=== PATIENT | female | born 1950 | race African-American/Black ===

== ENCOUNTER 2021-08-31 13:57 | Emergency (ER) | payer MEDICARE, MEDICAID ==
[~2021-08-31] VITALS: Ht 152.4 cm; Wt 41.0 kg
[2021-08-31] MEDS ORDERED: MORPHINE SULFATE 4 MG/ML CPJ (NOT FOR IM USE) IV STA (15:35)
[2021-08-31] MEDS ORDERED: ONDANSETRON HCL 4MG/2ML INJ IV STA (15:35)
[2021-08-31] MEDS ORDERED: ASPIRIN 81MG TABLET PO ONE (16:00)
[2021-08-31 16:39] LABS: CHLORIDE 99 mEq/L (98-107)
[2021-08-31 16:42] LABS: BASOPHILS % 0.4 % (0.0-2.0); EOSINOPHILS % 1.6 % (0.0-5.0); HEMATOCRIT. 32.9 % (36.0-48.0); LYMPHOCYTES % 18.1 % (20.0-50.0); MEAN CORPUSCULAR VOLUME 105.1 fL (81.0-99.0); MEAN PLATELET VOLUME 7.4 fl (7.4-10.4); MONOCYTES % 9.9 % (2.0-8.0); PLATELET 246 x1000/uL (130-400); RED BLOOD CELL COUNT 3.14 mill/uL (4.2-5.4); RED CELL DISTRIBUTION WIDTH 15.7 % (11.6-14.6)
[2021-08-31] MEDS ORDERED: DIPHENHYDRAMINE 12.5MG/5ML UDC PO ONE (17:00)
[2021-08-31 19:00] VITALS: BP 109/66
[2021-09-05] MEDS ORDERED: T4 PO (10:13)
[2021-09-05] MEDS ORDERED: ALBU6.7H9 INH (10:13)
== END 2021-08-31 18:05 | disposition home or self-care (01) ==
LOC: ER 13:57
DX: R07.89 Other chest pain (principal); I10 Essential (primary) hypertension; Z85.41 Personal history of malignant neoplasm of cervix uteri; Z90.710 Acquired absence of both cervix and uterus; Z88.6 Allergy status to analgesic agent
CPT/HCPCS: 36415; 71045; 80053; 83880; 84484; 85025; 96374; 96375; 99285; J2270; J2405; Q0163

== ENCOUNTER 2021-10-29 18:46 | Inpatient (IN) | payer MEDICARE, MEDICAID ==
[~2021-10-29] VITALS: Ht 152.4 cm; Wt 44.9 kg
[~2021-10-29 18:46] MED LIST: ALBU6.7H9 INH; T4 PO
[2021-10-29] MEDS ORDERED: SODIUM CHLORIDE 0.9% 1,000 ML IV ONE (20:00)
[2021-10-29] MEDS ORDERED: HYDROMORPHONE HCL 2MG TABLET PO NR (20:00)
[2021-10-29] MEDS ORDERED: HYDROMORPHONE HCL/PF 2MG/ML CPJ IV ONE (21:15)
[2021-10-29] MEDS ORDERED: DIPHENHYDRAMINE 25MG CAPSULE PO ONE (21:15)
[2021-10-29 21:38] LABS: CHLORIDE 110 mEq/L (98-107)
[2021-10-29 21:42] LABS: HEMATOCRIT. 31.8 % (36.0-48.0); HEMOGLOBIN. 10.9 g/dL (12.0-16.0); MEAN CORPUSCULAR HEMOGLOBIN 35.7 pg (28.0-32.0); MEAN CORPUSCULAR VOLUME 104.3 fL (81.0-99.0); MEAN PLATELET VOLUME 7.4 fl (7.4-10.4); PLATELET 189 x1000/uL (130-400); RED BLOOD CELL COUNT 3.05 mill/uL (4.2-5.4)
[2021-10-29 21:44] LABS: CLARITY URINE CLEAR (CLEAR); COLOR URINE YELLOW (YELLOW); KETONES URINE NEGATIVE (NEGATIVE); LEUKOCYTE ESTERASE URINE NEGATIVE (NEGATIVE); NITRITE URINE NEGATIVE (NEGATIVE); OCCULT BLOOD URINE NEGATIVE (NEGATIVE); PH URINE 5.5 (4.5-8.0); PROTEIN URINE NEGATIVE (NEGATIVE); SPECIFIC GRAVITY URINE 1.012 (1.005-1.030); UROBILINOGEN URINE 0.2 E.U./dL (0.2-1.0)
[2021-10-29] MEDS ORDERED: ONDANSETRON HCL 4MG/2ML INJ IV ONE (21:45)
[2021-10-29 22:53] LABS: PLATELET ESTIMATE NORMAL
[2021-10-30] MEDS ORDERED: VANCOMYCIN HCL 1 GM/VIAL PO SCH ×2 (00:30→06:00)
[2021-10-30] MEDS ORDERED: ASPIRIN 325MG EC TABLET PO ONE (00:30)
[2021-10-30] MEDS ORDERED: DOCUSATE SODIUM 100MG CAPSULE PO PRN (00:45)
[2021-10-30] MEDS ORDERED: HYDROCODONE/ACETAMINOPHEN 5/325MG TABLET PO PRN (00:45)
[2021-10-30] MEDS ORDERED: GUAIFENESIN 200MG/10ML SUGAR FREE UDC PO PRN (00:45)
[2021-10-30] MEDS ORDERED: IPRATROPIUM/ALBUTEROL 0.5-3(2.5)MG/3ML NEB HHN PRN (00:45)
[2021-10-30] MEDS ORDERED: NALOXONE HCL 0.4 MG/ML 1ML VIAL IV PRN (01:15)
[2021-10-30] MEDS ORDERED: DIPHENHYDRAMINE 50MG/ML VIAL IV ONE (01:15)
[2021-10-30] MEDS ORDERED: MORPHINE SULFATE 4 MG/ML CPJ (NOT FOR IM USE) IV SCH (01:15)
[2021-10-30] MEDS: ONDANSETRON HCL 4MG/2ML INJ IV PRN ×4 (02:28→21:17)
[2021-10-30] MEDS ORDERED: ASPIRIN 325MG EC TABLET PO SCH (02:30)
[2021-10-30] MEDS ORDERED: DIPHENHYDRAMINE 50MG/ML VIAL IV SCH (02:30)
[2021-10-30 02:50] VITALS: BP 132/70
[2021-10-30] MEDS ORDERED: HYDROMORPHONE HCL/PF 2MG/ML CPJ IV NR (07:45)
[2021-10-30 08:00] VITALS: BP 142/64
[2021-10-30] MEDS: DIPHENHYDRAMINE 50MG/ML VIAL IV PRN ×3 (08:38→21:17)
[2021-10-30] MEDS: ASPIRIN 81MG EC TABLET PO SCH (08:40)
[2021-10-30] MEDS: METOPROLOL TARTRATE 25MG TABLET PO SCH ×2 (08:40→21:16)
[2021-10-30] MEDS ORDERED: ENOXAPARIN 40MG/0.4ML SYR SUBCUT SCH (09:00)
[2021-10-30 12:00] VITALS: BP 125/80
[2021-10-30] MEDS: HYDROMORPHONE HCL/PF 2MG/ML CPJ IV PRN ×2 (15:14→21:17)
[2021-10-30 16:00] VITALS: BP 129/77
[2021-10-30] MEDS: METRONIDAZOLE 500 MG PREMIX 100 ML IV SCH (17:42)
[2021-10-30 18:03] LABS: BASOPHILS % 0.5 % (0.0-2.0); EOSINOPHILS % 0.8 % (0.0-5.0); HEMATOCRIT. 30.6 % (36.0-48.0); HEMOGLOBIN. 10.4 g/dL (12.0-16.0); LYMPHOCYTES % 28.2 % (20.0-50.0); MEAN CORPUSCULAR HEMOGLOBIN 36.1 pg (28.0-32.0); MEAN CORPUSCULAR VOLUME 106.1 fL (81.0-99.0); MEAN PLATELET VOLUME 7.3 fl (7.4-10.4); MONOCYTES % 12.5 % (2.0-8.0); PLATELET 181 x1000/uL (130-400); RED BLOOD CELL COUNT 2.88 mill/uL (4.2-5.4); RED CELL DISTRIBUTION WIDTH 14.9 % (11.6-14.6)
[2021-10-30 18:23] LABS: CHLORIDE 110 mEq/L (98-107)
[2021-10-30 18:38] LABS: HDL CHOLESTEROL 112 mg/dL (40-59); LDL CHOLESTEROL 58 mg/dL (5-100)
[2021-10-30 20:00] VITALS: BP 128/86
[2021-10-30] MEDS: ATORVASTATIN CALCIUM 40MG TABLET PO SCH (21:15)
[2021-10-31] VITALS: BP 135/67
[2021-10-31] MEDS: METRONIDAZOLE 500 MG PREMIX 100 ML IV SCH ×3 (03:01→17:09)
[2021-10-31] MEDS: ONDANSETRON HCL 4MG/2ML INJ IV PRN ×4 (03:16→21:29)
[2021-10-31] MEDS: DIPHENHYDRAMINE 50MG/ML VIAL IV PRN ×4 (03:17→21:31)
[2021-10-31] MEDS: HYDROMORPHONE HCL/PF 2MG/ML CPJ IV PRN ×4 (03:19→21:35)
[2021-10-31 04:00] VITALS: BP 109/56
[2021-10-31 08:00] VITALS: BP 141/50
[2021-10-31] MEDS: ASPIRIN 81MG EC TABLET PO SCH (09:00)
[2021-10-31] MEDS: METOPROLOL TARTRATE 25MG TABLET PO SCH ×2 (09:00→21:00)
[2021-10-31] MEDS: PANTOPRAZOLE SODIUM 40 MG/VIAL IV SCH (09:15)
[2021-10-31] MEDS: ENOXAPARIN 30MG/0.3ML SYR SUBCUT SCH (09:16)
[2021-10-31 09:27] LABS: BASOPHILS % 1.1 % (0.0-2.0); EOSINOPHILS % 1.3 % (0.0-5.0); HEMATOCRIT. 31.9 % (36.0-48.0); HEMOGLOBIN. 10.7 g/dL (12.0-16.0); LYMPHOCYTES % 21.9 % (20.0-50.0); MEAN CORPUSCULAR HEMOGLOBIN 36.4 pg (28.0-32.0); MEAN CORPUSCULAR VOLUME 108.4 fL (81.0-99.0); MEAN PLATELET VOLUME 7.5 fl (7.4-10.4); MONOCYTES % 11.8 % (2.0-8.0); NEUTROPHILS % 63.9 % (40.0-76.0); PLATELET 181 x1000/uL (130-400); RED BLOOD CELL COUNT 2.94 mill/uL (4.2-5.4); RED CELL DISTRIBUTION WIDTH 15.2 % (11.6-14.6)
[2021-10-31 10:37] LABS: CHLORIDE 109 mEq/L (98-107)
[2021-10-31 10:44] LABS: TOTAL IRON BINDING CAPACITY 347 ug/dL (250-450)
[2021-10-31 11:09] LABS: FOLIC ACID (FOLATE) SERUM 9.9 ng/mL (>5.38)
[2021-10-31 15:37] VITALS: BP 152/90
[2021-10-31 16:15] LABS: *AMPHETAMINES SCREEN URINE NEGATIVE (NEGATIVE); *BARBITURATES SCREEN URINE NEGATIVE (NEGATIVE); *BENZODIAZEPINES SCREEN URINE NEGATIVE (NEGATIVE); *COCAINE SCREEN URINE NEGATIVE (NEGATIVE); CANNABINOID URINE SCREEN NEGATIVE (NEGATIVE); METHADONE URINE SCREEN NEGATIVE (NEGATIVE); OPIATES URINE SCREEN PRESUMTIVE POSITIVE (NEGATIVE); PHENCYCLIDINE URINE SCREEN NEGATIVE (NEGATIVE)
[2021-10-31 20:00] VITALS: BP 106/67
[2021-10-31] MEDS: IPRATROPIUM/ALBUTEROL 0.5-3(2.5)MG/3ML NEB HHN SCH (21:12)
[2021-10-31] MEDS: ATORVASTATIN CALCIUM 40MG TABLET PO SCH (21:28)
[2021-11-01] VITALS (7 sets, daily range): BP systolic 97–120; BP diastolic 65–90
[2021-11-01] MEDS: METRONIDAZOLE 500 MG PREMIX 100 ML IV SCH ×3 (01:54→17:44)
[2021-11-01] MEDS: IPRATROPIUM/ALBUTEROL 0.5-3(2.5)MG/3ML NEB HHN SCH ×3 (01:59→20:29)
[2021-11-01] MEDS: ONDANSETRON HCL 4MG/2ML INJ IV PRN ×4 (04:18→22:31)
[2021-11-01] MEDS: DIPHENHYDRAMINE 50MG/ML VIAL IV PRN ×4 (04:18→22:31)
[2021-11-01] MEDS: HYDROMORPHONE HCL/PF 2MG/ML CPJ IV PRN ×4 (04:25→22:31)
[2021-11-01 05:10] LABS: HIV SCREEN 4G Non Reactive (Non Reactive)
[2021-11-01] MEDS: PANTOPRAZOLE SODIUM 40 MG/VIAL IV SCH (10:30)
[2021-11-01] MEDS: ASPIRIN 81MG EC TABLET PO SCH (10:31)
[2021-11-01] MEDS: METOPROLOL TARTRATE 25MG TABLET PO SCH ×2 (10:31→20:43)
[2021-11-01] MEDS: ENOXAPARIN 30MG/0.3ML SYR SUBCUT SCH (10:32)
[2021-11-01 11:09] LABS: BASOPHILS % 0.3 % (0.0-2.0); EOSINOPHILS % 1.1 % (0.0-5.0); LYMPHOCYTES % 23.4 % (20.0-50.0); MEAN CORPUSCULAR HEMOGLOBIN 35.6 pg (28.0-32.0); MEAN CORPUSCULAR VOLUME 106.4 fL (81.0-99.0); MEAN PLATELET VOLUME 7.9 fl (7.4-10.4); MONOCYTES % 10.9 % (2.0-8.0); NEUTROPHILS % 64.3 % (40.0-76.0); PLATELET 205 x1000/uL (130-400); RED BLOOD CELL COUNT 3.53 mill/uL (4.2-5.4); RED CELL DISTRIBUTION WIDTH 15.2 % (11.6-14.6)
[2021-11-01 11:15] LABS: HEMATOCRIT. 37.5 % (36.0-48.0); HEMOGLOBIN. 12.6 g/dL (12.0-16.0)
[2021-11-01 11:36] LABS: CHLORIDE 102 mEq/L (98-107)
[2021-11-01] MEDS: ATORVASTATIN CALCIUM 40MG TABLET PO SCH (20:43)
[2021-11-02] VITALS: BP 93/62
[2021-11-02] MEDS: IPRATROPIUM/ALBUTEROL 0.5-3(2.5)MG/3ML NEB HHN SCH ×2 (01:27→08:14)
[2021-11-02] MEDS: METRONIDAZOLE 500 MG PREMIX 100 ML IV SCH ×2 (01:46→11:24)
[2021-11-02 04:00] VITALS: BP 100/60
[2021-11-02] MEDS: ONDANSETRON HCL 4MG/2ML INJ IV PRN (04:32)
[2021-11-02] MEDS: HYDROMORPHONE HCL/PF 2MG/ML CPJ IV PRN ×2 (04:33→11:17)
[2021-11-02] MEDS: DIPHENHYDRAMINE 50MG/ML VIAL IV PRN (04:33)
[2021-11-02 06:28] LABS: CHLORIDE 107 mEq/L (98-107)
[2021-11-02 08:00] VITALS: BP 98/67
[2021-11-02] MEDS: ASPIRIN 81MG EC TABLET PO SCH (09:00)
[2021-11-02] MEDS: METOPROLOL TARTRATE 25MG TABLET PO SCH (09:00)
[2021-11-02] MEDS: ENOXAPARIN 30MG/0.3ML SYR SUBCUT SCH (09:00)
[2021-11-02] MEDS: PANTOPRAZOLE SODIUM 40 MG/VIAL IV SCH (09:00)
[2021-11-02 09:32] LABS: BASOPHILS % 0.2 % (0.0-2.0); EOSINOPHILS % 1.1 % (0.0-5.0); HEMATOCRIT. 31.6 % (36.0-48.0); HEMOGLOBIN. 10.8 g/dL (12.0-16.0); LYMPHOCYTES % 15.3 % (20.0-50.0); MEAN CORPUSCULAR HEMOGLOBIN 36.1 pg (28.0-32.0); MEAN CORPUSCULAR VOLUME 105.8 fL (81.0-99.0); MEAN PLATELET VOLUME 7.6 fl (7.4-10.4); MONOCYTES % 9.8 % (2.0-8.0); NEUTROPHILS % 73.6 % (40.0-76.0); PLATELET 194 x1000/uL (130-400); RED BLOOD CELL COUNT 2.98 mill/uL (4.2-5.4); RED CELL DISTRIBUTION WIDTH 15.1 % (11.6-14.6)
[2021-11-02 11:17] VITALS: BP 107/81
== END 2021-11-02 12:15 | disposition home or self-care (01) | DRG 392 ==
LOC: ER 18:46 → 8WST 10-30 00:25 → EDBEDREQTM 10-30 00:27 → EDBEDREQ 10-30 00:27 → EDBEDREQDT 10-30 00:27 → ENRESERV 10-30 02:19 → 8WST 10-31 18:03
PROVIDERS: ADMIT Internal Medicine; ATTEND Internal Medicine
PROC: 05HY33Z Insertion of Infusion Device into Upper Vein, Percutaneous Approach (ICD-10-PCS; principal; 2021-10-30)
DX: K52.9 Noninfective gastroenteritis and colitis, unspecified (principal); Z68.1 Body mass index [BMI] 19.9 or less, adult; E04.2 Nontoxic multinodular goiter; D72.819 Decreased white blood cell count, unspecified; J43.2 Centrilobular emphysema; R07.89 Other chest pain; D35.02 Benign neoplasm of left adrenal gland; C53.9 Malignant neoplasm of cervix uteri, unspecified; E78.5 Hyperlipidemia, unspecified; I11.0 Hypertensive heart disease with heart failure; I25.10 Atherosclerotic heart disease of native coronary artery without angina pectoris; I27.20 Pulmonary hypertension, unspecified; B96.89 Other specified bacterial agents as the cause of diseases classified elsewhere; K44.9 Diaphragmatic hernia without obstruction or gangrene; K86.9 Disease of pancreas, unspecified; M79.7 Fibromyalgia; R63.4 Abnormal weight loss; F41.9 Anxiety disorder, unspecified; F17.200 Nicotine dependence, unspecified, uncomplicated; Z96.643 Presence of artificial hip joint, bilateral; Z85.41 Personal history of malignant neoplasm of cervix uteri; Z86.711 Personal history of pulmonary embolism; Z86.718 Personal history of other venous thrombosis and embolism; Z86.74 Personal history of sudden cardiac arrest; Z90.710 Acquired absence of both cervix and uterus; Z88.8 Allergy status to other drugs, medicaments and biological substances; Z85.028 Personal history of other malignant neoplasm of stomach; Z88.6 Allergy status to analgesic agent; Z99.81 Dependence on supplemental oxygen
CPT/HCPCS: 36415; 71045; 71275; 74018; 74177; 74181; 76536; 76937; 80048; 80053; 80061; 80305; 81003; 82105; 82378; 82607; 82728; 82746; 83540; 83550; 83735; 83880; 84443; 84484; 85025; 85044; 85379; 86301; 87015; 87045; 87389; 87427; 87449; 87493; 89055; 93005; 93306; 93970; 94640; 97162; 99285; C1725; C1769; C9113; J1170; J1200; J1650; J2270; J2405; J3370; J3490; Q0163

== ENCOUNTER 2024-12-08 14:16 | Inpatient (IN) | payer OTHER, MEDICAID ==
[~2024-12-08] VITALS: Ht 162.6 cm; Wt 49.9 kg
[~2024-12-08 14:16] MED LIST changes: +ALBU18HF2; +ALBU6.7H3 INH; -ALBU6.7H9 INH; +ASPI-1497 MT; +ATOR20TA MT; +FLUT1BLS3
[2024-12-08 14:23] VITALS: O2SAT 96
[2024-12-08] MEDS: ASPIRIN 81MG TABLET PO ONE (15:28)
[2024-12-08] MEDS: HYDROCODONE/ACETAMINOPHEN 5/325MG TABLET PO ONE (15:30)
[2024-12-08] MEDS: LIDOCAINE 5% PATCH TOP SCH (15:33)
[2024-12-08 16:34] LABS: BASOPHILS % 0.6 % (0.0-2.0); DIFFERENTIAL COMMENT 0; EOSINOPHILS % 0.6 % (0.0-5.0); HEMATOCRIT. 30.2 % (36.0-48.0); HEMOGLOBIN. 10.3 g/dL (12.0-16.0); LYMPHOCYTES % 30.3 % (20.0-50.0); MEAN CORPUSCULAR HEMOGLOBIN 36.1 pg (28.0-32.0); MEAN PLATELET VOLUME 7.5 fl (7.4-10.4); MONOCYTES % 12.9 % (2.0-8.0); NEUTROPHILS % 55.6 % (40.0-76.0); PLATELET 227 x1000/uL (130-400); RED BLOOD CELL COUNT 2.85 mill/uL (4.2-5.4); RED CELL DISTRIBUTION WIDTH 15.4 % (11.6-14.6); WHITE BLOOD COUNT 2.8 x1000/uL (4.5-11.0)
[2024-12-08 16:44] LABS: CHLORIDE 102 mEq/L (98-107); POTASSIUM 4.7 mEq/L (3.5-5.1); SODIUM 134 mEq/L (136-145)
[2024-12-08 16:45] LABS: CARBON DIOXIDE 24 mEq/L (21-32)
[2024-12-08 16:46] LABS: CALCIUM 9.4 mg/dL (8.7-10.4)
[2024-12-08 16:50] LABS: CREATININE 1.2 mg/dL (0.6-1.0); GLUCOSE 83 mg/dL (70-105); UREA NITROGEN BLOOD 18 mg/dL (9-23)
[2024-12-08 16:53] LABS: TROPONIN I HIGH SENSITIVITY 4 ng/L (3.0-34)
[2024-12-08] MEDS: MORPHINE SULFATE 4 MG/ML INJ (FOR IV/IM USE) IV ONE (17:04)
[2024-12-08 18:54] VITALS: BP 105/73; PULSE 61; RESP 18; TEMP 36.5; O2SAT 99
[2024-12-08 19:40] VITALS: BP 119/69; PULSE 83; RESP 18; TEMP 36.6
[2024-12-08 20:00] VITALS: BP 119/69; PULSE 83; RESP 18; TEMP 36.6; O2SAT 95
[2024-12-08] MEDS ORDERED: DOCUSATE SODIUM 100MG CAPSULE PO PRN (22:00)
[2024-12-08] MEDS ORDERED: IPRATROPIUM/ALBUTEROL 0.5-3(2.5)MG/3ML NEB HHN PRN (22:00)
[2024-12-08] MEDS ORDERED: ACETAMINOPHEN 325MG TABLET PO PRN ×2 (22:00)
[2024-12-08] MEDS ORDERED: ONDANSETRON HCL 4MG/2ML INJ IV PRN (22:00)
[2024-12-08] MEDS ORDERED: CLONIDINE 0.1MG TABLET PO PRN (22:00)
[2024-12-09] VITALS: BP 104/60; PULSE 80; RESP 18; TEMP 36.3; O2SAT 93
[2024-12-09] MEDS ORDERED: NALOXONE HCL 0.4MG/ML VIAL IV PRN (01:00)
[2024-12-09] MEDS: MORPHINE SULFATE 4 MG/ML INJ (FOR IV/IM USE) IV PRN (01:03)
[2024-12-09 04:00] VITALS: BP 97/53; PULSE 64; RESP 20; TEMP 36.5; O2SAT 94
[2024-12-09 08:00] VITALS: BP 103/51; PULSE 63; RESP 18; TEMP 36.5; O2SAT 99
[2024-12-09] MEDS: ENOXAPARIN 30MG/0.3ML SYR SUBCUT SCH (09:00)
[2024-12-09] MEDS: PANTOPRAZOLE SODIUM 40 MG/VIAL IV SCH (09:00)
[2024-12-09] MEDS: ASPIRIN 81MG TABLET PO SCH (09:00)
[2024-12-09 12:00] VITALS: BP 139/79; PULSE 90; RESP 18; TEMP 36.6; O2SAT 98
[2024-12-09 16:00] VITALS: BP 119/66; PULSE 70; RESP 18; TEMP 36.4; O2SAT 99
[2024-12-09 20:00] VITALS: BP 123/68; PULSE 68; RESP 18; TEMP 36.7; O2SAT 98
[2024-12-09] MEDS: OXYCODONE HCL/ACETAMINOPHEN 5/325MG TABLET PO PRN (21:37)
[2024-12-10] VITALS: BP 118/62; PULSE 78; RESP 18; TEMP 36.6; O2SAT 97
[2024-12-10 04:00] VITALS: BP 110/58; PULSE 77; RESP 18; TEMP 36.2; O2SAT 98
[2024-12-10 06:03] VITALS: BP 110/58; PULSE 77; RESP 18
== END 2024-12-10 09:47 | disposition left against medical advice (07) | DRG 206 ==
LOC: ER 14:16 → 8WST 16:59 → EDBEDREQ 17:08 → EDBEDREQTM 17:08 → ENRESERV 17:45
PROVIDERS: ADMIT Internal Medicine; ATTEND Internal Medicine
DX: M94.0 Chondrocostal junction syndrome [Tietze] (principal); I24.9 Acute ischemic heart disease, unspecified; N17.9 Acute kidney failure, unspecified; D64.9 Anemia, unspecified; I50.9 Heart failure, unspecified; I11.0 Hypertensive heart disease with heart failure; D72.819 Decreased white blood cell count, unspecified; J44.9 Chronic obstructive pulmonary disease, unspecified; Z53.29 Procedure and treatment not carried out because of patient's decision for other reasons; Z76.5 Malingerer [conscious simulation]; Z88.5 Allergy status to narcotic agent; Z88.6 Allergy status to analgesic agent; Z90.710 Acquired absence of both cervix and uterus
CPT/HCPCS: 36415; 71045; 80048; 83880; 84484; 85025; 93005; 99285; J1650; J2270; J2470

== ENCOUNTER 2025-05-30 06:47 | Inpatient (IN) | payer MEDICARE, MEDICAID ==
[2025-05-30] VITALS (11 sets, daily range): BP systolic 116–139; BP diastolic 74–85; PULSE 80–100; RESP 11–26; TEMP 36.3–36.9; O2SAT 79–100
[~2025-05-30] VITALS: Ht 157.5 cm; Wt 41.0 kg
[2025-05-30] MEDS: KETOROLAC 15MG/ML VIAL IV ONE (08:06)
[2025-05-30] MEDS: METHYLPREDNISOLONE SOD SUCC 125MG/2ML (ACT-O-VIAL) IV ONE (08:06)
[2025-05-30] MEDS: MAGNESIUM 2 G PREMIX 50 ML IV ONE (08:06)
[2025-05-30 08:34] LABS: BASOPHILS % 0.2 % (0.0-2.0); EOSINOPHILS % 0.1 % (0.0-5.0); HEMATOCRIT. 40.7 % (36.0-48.0); HEMOGLOBIN. 13.5 g/dL (12.0-16.0); LYMPHOCYTES % 9.0 % (20.0-50.0); MEAN PLATELET VOLUME 7.8 fl (7.4-10.4); MONOCYTES % 8.6 % (2.0-8.0); NEUTROPHILS % 82.1 % (40.0-76.0); PLATELET 198 x1000/uL (130-400); RED BLOOD CELL COUNT 4.01 mill/uL (4.2-5.4); RED CELL DISTRIBUTION WIDTH 15.0 % (11.6-14.6)
[2025-05-30 08:48] LABS: CREATININE 0.8 mg/dL (0.6-1.0); UREA NITROGEN BLOOD 10 mg/dL (9-23)
[2025-05-30 08:49] LABS: TROPONIN I HIGH SENSITIVITY 17 ng/L (3.0-34)
[2025-05-30] MEDS ORDERED: MAGNESIUM/ALUMINUM HYDROXIDE/SIMETHICONE 30ML UDC PO PRN (11:00)
[2025-05-30] MEDS ORDERED: ACETAMINOPHEN 325MG TABLET PO PRN (11:00)
[2025-05-30] MEDS ORDERED: NALOXONE HCL 0.4MG/ML VIAL IV PRN (11:30)
[2025-05-30] MEDS: METHYLPREDNISOLONE SOD SUCC 40MG/ML (ACT-O-VIAL) IV SCH (11:59)
[2025-05-30] MEDS: HYDROCODONE/ACETAMINOPHEN 5/325MG TABLET PO PRN (12:00)
[2025-05-30] MEDS: ONDANSETRON HCL 4MG/2ML INJ IV PRN (12:00)
[2025-05-30] MEDS: ENOXAPARIN 40MG/0.4ML SYR SUBCUT SCH (12:01)
[2025-05-30] MEDS: MORPHINE SULFATE 2 MG/ML INJ (NOT FOR IM USE) IV PRN (12:16)
[2025-05-30] MEDS ORDERED: AZITHROMYCIN 500MG/250ML 250 ML IV SCH (14:30)
[2025-05-30] MEDS: IPRATROPIUM/ALBUTEROL 0.5-3(2.5)MG/3ML NEB NEB SCH (14:47)
[2025-05-30 15:03] LABS: BG BASE EXCESS -1.4 mmol/L (-2.0-3.0); BG CARBOXYHEMOGLOBIN 1.4 % (0.5-1.5); BG DEOXYHEMOGLOBIN 5.6 % (0.0-5.0); BG FLOW(L/min) 3.50 L/min; BG FRACTION INSPIRED OXYGEN 34; BG HCO3 ACT 25.3 mmol/L (21.0-28.0); BG METHEMOGLOBIN 0.1 % (0.5-1.5); BG OXYGEN SATURATION 94.3 % (94.0-98.0); BG OXYHEMOGLOBIN 92.9 % (94.0-98.0); BG PCO2 50.9 mmHg (32.0-45.0); BG PH 7.315 (7.350-7.450); BG PO2 77.7 mmHg (83.0-108.0); BG SAMPLE SITE RIGHT BRACHIAL; BG TOTAL HEMOGLOBIN 13.3 g/dL (12.0-16.0); BG VENT MODE NASAL CANNULA
[2025-05-30 19:17] LABS: TROPONIN I HIGH SENSITIVITY 36 ng/L (3.0-34)
[2025-05-30] MEDS: SODIUM ZIRCONIUM CYCLOSILICATE 10GM/PACKET PO NR (22:35)
[2025-05-30 23:57] LABS: TROPONIN I HIGH SENSITIVITY 35 ng/L (3.0-34)
[2025-05-31] VITALS (18 sets, daily range): BP systolic 95–139; BP diastolic 63–92; PULSE 76–92; RESP 15–22; TEMP 36.6–37.1; O2SAT 94–100
[2025-05-31 07:16] LABS: CREATININE 0.7 mg/dL (0.6-1.0); UREA NITROGEN BLOOD 11 mg/dL (9-23)
[2025-05-31] MEDS: PANTOPRAZOLE SODIUM 40 MG/VIAL IV SCH (10:05)
[2025-05-31 11:15] LABS: HEMATOCRIT. 37.9 % (36.0-48.0); HEMOGLOBIN. 12.4 g/dL (12.0-16.0); MEAN PLATELET VOLUME 8.0 fl (7.4-10.4); PLATELET 180 x1000/uL (130-400); RED BLOOD CELL COUNT 3.71 mill/uL (4.2-5.4); RED CELL DISTRIBUTION WIDTH 14.5 % (11.6-14.6)
[2025-05-31 14:07] LABS: BAND% 14.0 % (1.0-6.0); LYMPHOCYTES % MANUAL 4.0 % (20.0-60.0); MONOCYTES % MANUAL 8.0 % (2.0-8.0); NEUTROPHILS % MANUAL 74.0 % (45.0-75.0); PLATELET ESTIMATE NORMAL
[2025-05-31 17:51] LABS: GLUCOSE URINE 2+ (NEGATIVE); KETONES URINE NEGATIVE (NEGATIVE)
[2025-05-31 18:02] LABS: *AMPHETAMINES SCREEN URINE NEGATIVE (NEGATIVE); *BARBITURATES SCREEN URINE NEGATIVE (NEGATIVE); *BENZODIAZEPINES SCREEN URINE NEGATIVE (NEGATIVE); *COCAINE SCREEN URINE NEGATIVE (NEGATIVE); CANNABINOID URINE SCREEN NEGATIVE (NEGATIVE); ECSTASY MDMA SCREEN URINE NEGATIVE (NEGATIVE); METHADONE URINE SCREEN NEGATIVE (NEGATIVE); OPIATES URINE SCREEN PRESUMPTIVE POSITIVE (NEGATIVE); PHENCYCLIDINE URINE SCREEN NEGATIVE (NEGATIVE)
[2025-05-31 18:14] LABS: COLOR URINE YELLOW (YELLOW)
[2025-05-31 18:15] LABS: LEUKOCYTE ESTERASE URINE NEGATIVE (NEGATIVE); NITRITE URINE NEGATIVE (NEGATIVE); OCCULT BLOOD URINE NEGATIVE (NEGATIVE); PH URINE 6.0 (4.5-8.0); PROTEIN URINE 2+ (NEGATIVE); SPECIFIC GRAVITY URINE 1.027 (1.005-1.030); UROBILINOGEN URINE 0.2 E.U./dL (0.2-1.0)
[2025-05-31 18:16] LABS: BACTERIA URINE 1+; CLARITY URINE CLOUDY (CLEAR); RBC URINE 0-2 /hpf (0-2); SQUAMOUS EPITHELIAL CELL URINE 2+ /lpf (RARE/1+); WBC URINE 0-2 /hpf (0-2)
[2025-05-31] MEDS: METHYLPREDNISOLONE SOD SUCC 40MG/ML (ACT-O-VIAL) IV SCH (20:11)
[2025-06-01] VITALS (19 sets, daily range): BP systolic 96–166; BP diastolic 64–98; PULSE 62–109; RESP 16–32; TEMP 36.3–36.7; O2SAT 88–98
[2025-06-01 06:07] LABS: CREATININE 0.5 mg/dL (0.6-1.0)
[2025-06-01 06:08] LABS: UREA NITROGEN BLOOD 17 mg/dL (9-23)
[2025-06-01 07:15] LABS: HEMATOCRIT. 34.4 % (36.0-48.0); HEMOGLOBIN. 11.4 g/dL (12.0-16.0); RED BLOOD CELL COUNT 3.37 mill/uL (4.2-5.4); RED CELL DISTRIBUTION WIDTH 14.2 % (11.6-14.6)
[2025-06-01] MEDS: ENOXAPARIN 30MG/0.3ML SYR SUBCUT SCH (09:03)
[2025-06-01 11:03] LABS: BAND% 12.0 % (1.0-6.0); LYMPHOCYTES % MANUAL 6.0 % (20.0-60.0); MONOCYTES % MANUAL 5.0 % (2.0-8.0); NEUTROPHILS % MANUAL 77.0 % (45.0-75.0); PLATELET ESTIMATE NORMAL
[2025-06-01 11:05] LABS: PLATELET 180 x1000/uL (130-400)
[2025-06-01] MEDS: IPRATROPIUM BROMIDE (0.02%) 0.5MG/2.5ML NEB HHN SCH (16:57)
[2025-06-01] MEDS: DILTIAZEM HCL 30MG TABLET PO SCH (17:22)
[2025-06-01] MEDS: ENOXAPARIN 40MG/0.4ML SYR SUBCUT SCH (17:23)
[2025-06-01] MEDS: PREDNISONE 20MG TABLET PO SCH (17:23)
[2025-06-01] MEDS ORDERED: ENOXAPARIN 60MG/0.6ML SYR SUBCUT SCH (18:00)
[2025-06-01] MEDS: SODIUM ZIRCONIUM CYCLOSILICATE 10GM/PACKET PO NR (22:36)
[2025-06-01] MEDS: CLONIDINE 0.1MG TABLET PO PRN (22:40)
[2025-06-02] VITALS (14 sets, daily range): BP systolic 126–166; BP diastolic 68–96; PULSE 62–109; RESP 17–25; TEMP 36.3–36.9; O2SAT 70–99
[2025-06-02] MEDS ORDERED: ENOXAPARIN 60MG/0.6ML SYR SUBCUT SCH (06:00)
[2025-06-02 06:09] LABS: INR 0.9
[2025-06-02 06:10] LABS: HEMATOCRIT. 37.3 % (36.0-48.0); HEMOGLOBIN. 12.3 g/dL (12.0-16.0); MEAN PLATELET VOLUME 8.6 fl (7.4-10.4); PLATELET 219 x1000/uL (130-400); RED BLOOD CELL COUNT 3.68 mill/uL (4.2-5.4); RED CELL DISTRIBUTION WIDTH 14.7 % (11.6-14.6)
[2025-06-02 06:23] LABS: CREATININE 0.5 mg/dL (0.6-1.0); UREA NITROGEN BLOOD 12 mg/dL (9-23)
[2025-06-02] MEDS: ENOXAPARIN 40MG/0.4ML SYR SUBCUT SCH (08:57)
[2025-06-02 11:29] LABS: BG BASE EXCESS 4.6 mmol/L (-2.0-3.0); BG CARBOXYHEMOGLOBIN 1.5 % (0.5-1.5); BG DEOXYHEMOGLOBIN 11.2 % (0.0-5.0); BG FRACTION INSPIRED OXYGEN 21; BG HCO3 ACT 27.4 mmol/L (21.0-28.0); BG METHEMOGLOBIN 0.3 % (0.5-1.5); BG OXYGEN SATURATION 88.6 % (94.0-98.0); BG OXYHEMOGLOBIN 87.0 % (94.0-98.0); BG PCO2 35.1 mmHg (32.0-45.0); BG PH 7.511 (7.350-7.450); BG PO2 54.3 mmHg (83.0-108.0); BG SAMPLE SITE RIGHT RADIAL; BG TOTAL HEMOGLOBIN 13.6 g/dL (12.0-16.0); BG VENT MODE ROOM AIR
[2025-06-02] MEDS ORDERED: IPRATROPIUM/ALBUTEROL 0.5-3(2.5)MG/3ML NEB HHN PRN (18:15)
[2025-06-02] MEDS: IPRATROPIUM/ALBUTEROL 0.5-3(2.5)MG/3ML NEB HHN SCH (19:55)
[2025-06-02] MEDS: TRAMADOL 50MG TABLET PO PRN (20:56)
[2025-06-02] MEDS: ZOLPIDEM TARTRATE 5MG TABLET PO PRN (22:12)
[2025-06-03 08:00] VITALS: BP 122/71; PULSE 99; TEMP 36.6
[2025-06-03] MEDS: ACETYLCYSTEINE 200MG/ML 20% VIAL 4ML INH SCH (09:15)
[2025-06-03 09:20] VITALS: PULSE 89; RESP 20; O2SAT 98
[2025-06-03] MEDS ORDERED: IPRA3AMP9 HHN (11:02)
[2025-06-03] MEDS ORDERED: ALBU18HF2 INH (11:02)
[2025-06-03] MEDS ORDERED: P20 PO (11:02)
[2025-06-03 12:56] LABS: BAND% 8.0 % (1.0-6.0); LYMPHOCYTES % MANUAL 7.0 % (20.0-60.0); MONOCYTES % MANUAL 9.0 % (2.0-8.0); NEUTROPHILS % MANUAL 76.0 % (45.0-75.0)
[2025-06-03 12:57] LABS: PLATELET ESTIMATE NORMAL
[2025-06-03 16:00] VITALS: BP 125/85; PULSE 98; TEMP 36.7
[2025-06-03 20:00] VITALS: BP 158/93; PULSE 98; RESP 20; TEMP 36.8; O2SAT 100
[2025-06-03] MEDS: GUAIFENESIN 600MG ER TABLET PO SCH (22:13)
[2025-06-04] VITALS: BP 152/88; PULSE 97; RESP 20; TEMP 36.9; O2SAT 98
[2025-06-04 04:00] VITALS: BP 138/1; PULSE 96; RESP 20; TEMP 36.8; O2SAT 97
[2025-06-04 08:00] VITALS: BP 158/87; PULSE 107; RESP 20; TEMP 37.1; O2SAT 96
[2025-06-04 08:27] VITALS: PULSE 71; RESP 20; O2SAT 96
[2025-06-04 13:00] VITALS: RESP 18; O2SAT 96
[2025-06-04 13:29] VITALS: PULSE 97
== END 2025-06-04 14:44 | disposition home health service (06) | DRG 189 ==
LOC: ER 06:47 → 5EST 08:40 → EDBEDREQTM 08:43 → EDBEDREQ 08:43 → ENRESERV 11:03 → 7WST 06-02 15:10
PROVIDERS: ADMIT Internal Medicine; ATTEND Internal Medicine
PROC: 5A09357 Assistance with Respiratory Ventilation, Less than 24 Consecutive Hours, Continuous Positive Airway Pressure (ICD-10-PCS; principal; 2025-05-30)
DX: J96.21 Acute and chronic respiratory failure with hypoxia (principal); J44.1 Chronic obstructive pulmonary disease with (acute) exacerbation; I11.0 Hypertensive heart disease with heart failure; I50.9 Heart failure, unspecified; J96.22 Acute and chronic respiratory failure with hypercapnia; Z82.49 Family history of ischemic heart disease and other diseases of the circulatory system; Z82.5 Family history of asthma and other chronic lower respiratory diseases; Z88.5 Allergy status to narcotic agent; Z88.6 Allergy status to analgesic agent
CPT/HCPCS: 36415; 36600; 71045; 80048; 80305; 81003; 82375; 82805; 83880; 84443; 84484; 85025; 93005; 93970; 94070; 94640; 94660; 94664; 99285; A4606; A4615; J1650; J1885; J2270; J2405; J2470; J2919; J3475; J7512; J7608